=== PATIENT | male | born 1995 | race African-American/Black ===

== ENCOUNTER 2019-05-12 18:19 | Emergency (ER) | payer OTHER ==
[~2019-05-12] VITALS: Ht 177.8 cm; Wt 81.1 kg
[2019-05-12] MEDS ORDERED: LIDOCAINE-MPF 1%, 5ML INFIL ONE (19:00)
[2019-05-12] MEDS ORDERED: BACITRACIN ZINC OINT 500U/GM, 0.9 GM ONE (19:14)
--- NOTE | 2019-05-12 19:29 | NUR ---
IRRIGATION AND SUTURING DONE. LARGE BAND AID APPLIED.
--- NOTE | 2019-05-12 19:30 | NUR ---
PATIENT DISCHARGED WITH INSTRUCTION. VERBALIZED UNDERTANDING.
[2019-05-12 19:31] VITALS: BP 123/67
== END 2019-05-12 19:33 | disposition home or self-care (01) ==
LOC: ED 19:15
DX: S61.412A Laceration without foreign body of left hand, initial encounter (principal); W26.0XXA Contact with knife, initial encounter; Y93.89 Activity, other specified; Y92.009 Unspecified place in unspecified non-institutional (private) residence as the place of occurrence of the external cause; Y99.8 Other external cause status
CPT/HCPCS: 12041; 99284

== ENCOUNTER 2019-05-19 12:15 | Emergency (ER) | payer OTHER ==
[~2019-05-19] VITALS: Ht 177.8 cm; Wt 84.5 kg
[2019-05-19 12:21] VITALS: BP 129/68
--- NOTE | 2019-05-19 12:48 | NUR ---
SUTURE X 2 REMOVED FROM LEFT HAND
== END 2019-05-19 12:50 | disposition home or self-care (01) ==
LOC: ED 12:46
DX: L03.114 Cellulitis of left upper limb (principal); S61.412D Laceration without foreign body of left hand, subsequent encounter
CPT/HCPCS: 99283